=== PATIENT | male | born 1975 | race Caucasian/White ===

== ENCOUNTER 2024-05-31 16:39 | Emergency (ER) | payer SELFPAY ==
[2024-05-31 16:42] VITALS: BP 166/82; PULSE 76; RESP 18; TEMP 36.7; O2SAT 98; BMI 34.0
--- NOTE | 2024-05-31 16:56 | CTR_ITS ---
PROCEDURE INFORMATION: Exam: CT Head Without Contrast Exam date and time: 05/31/2024 5:08 PM Age: 48 years old Clinical indication: Stroke-like symptoms; Dizziness/giddiness; Additional info: Possible stroke TECHNIQUE: Imaging protocol: Computed tomography of the head without contrast. Total images: 319 Radiation optimization: All CT scans at this facility use at least one of these dose optimization techniques: automated exposure control; mA and/or kV adjustment per patient size (includes targeted exams where dose is matched to clinical indication); or iterative reconstruction. Other technique: STROKE PROTOCOL was implemented. COMPARISON: No relevant prior studies available. RADIATION DOSE METRICS: Total DLP (mGy-cm): 1145.98 FINDINGS: Brain: No midline shift. The ventricular system is open and the cerebral sulci are not effaced. Within the brain parenchyma, no focus of abnormal attenuation is identified. There is no acute intra-axial hemorrhage or mass effect identified. No extra-axial fluid collection demonstrated. Cerebral ventricles: No Hydrocephalus. Paranasal sinuses: Visualized paranasal sinuses are clear. Mastoid air cells: Visualized mastoid air cells are clear. Bones: No acute osseous abnormality identified. Soft tissues: No acute abnormality identified. Notes: Please note CT does not detect all acute ischemic abnormalities; if indicated, consider MRI with diffusion, or follow-up Head CT CT/CT head wo con* [id number] IMPRESSION: No evidence of acute intracranial hemorrhage or mass effect. ASSESSMENT: ASPECTS ([place] Stroke Program Early CT Score) is 10.
--- NOTE | 2024-05-31 17:30 | W.ED.NEUROSD ---
HPI - Neuro Symptoms/Deficit General: Chief Complaint: Neuro Symptoms/Deficit Stated Complaint: sent from clinic possible TIA Time Seen by Provider: 05/31/24 16:54 History of Present Illness: 48-year-old man with no known medical problems who presents emergency room with episodes of dizziness and feeling off balance and possibly some slurred speech overnight. Symptoms were intermittent overnight starting about 1:30 AM. They then resolved. He then had symptoms again today and went to a urgent care who sent him to the emergency room. He is completely 100% symptom-free at this time. No cough. No chest pain. No shortness of breath. No abdominal pain. No nausea or vomiting. Related Data Previous Rx's Medication Instructions Recorded lisinopril 20 mg tablet 20 mg PO DAILY #60 tabs 05/31/24 metformin 500 mg tablet 500 mg PO BID #60 tabs 05/31/24 Allergies Allergy/AdvReac Type Severity Reaction Status Date / Time Penicillins Allergy Unknown Verified 05/31/24 16:52 Review of Systems Narrative: Constitutional symptoms: Negative except as documented in HPI. Skin symptoms: Negative except as documented in HPI. Eye symptoms: Negative except as documented in HPI. ENMT symptoms: Negative except as documented in HPI. Respiratory symptoms: Negative except as documented in HPI. Cardiovascular symptoms: Negative except as documented in HPI. Gastrointestinal symptoms: Negative except as documented in HPI. Genitourinary symptoms: Negative except as documented in HPI. Musculoskeletal symptoms: Negative except as documented in HPI. Neurologic symptoms: Negative except as documented in HPI. Psychiatric symptoms: Negative except as documented in HPI. Endocrine symptoms: Negative except as documented in HPI. FORMERLY [facility], [facility] ED PFSH: Social History Smoking and tobacco/nicotine status: unknown if used tobacco/nicotine Physical Exam Narrative: EXAM NARRATIVE: General: Alert, no acute distress. Skin: Warm, dry. Head: Normocephalic, atraumatic. Neck: Supple, trachea midline. Eye: Extraocular movements are intact. Ears, nose, mouth and throat: mucosa moist. Cardiovascular: Regular, Normal peripheral perfusion. Respiratory: Lungs are clear to auscultation, respirations are non-labored, breath sounds are equal, Symmetrical chest wall expansion. Gastrointestinal: Soft, Nontender, Non distended Musculoskeletal: Normal ROM, no deformity. Neurological: Alert and oriented, No focal neurological deficit observed. Psychiatric: Cooperative, appropriate mood & affect. Course Vital Signs: Vital signs: Vital Signs Temperature 98.0 F 05/31/24 16:42 Pulse Rate 70 05/31/24 19:01 Respiratory Rate 20 H 05/31/24 19:01 Blood Pressure 166/82 05/31/24 16:42 Pulse Oximetry 97 05/31/24 19:01 Oxygen Delivery Me thod Room Air 05/31/24 16:42 MDM - Neuro Symptoms/Deficit Medical Decision Making Medical decision making: Differential diagnosis for patient with focal neurologic deficit(s) includes but not limited to and based on the above HPI, review of systems and physical exam: ischemic stroke, hemorrhagic stroke and embolic stroke secondary to atrial fibrillation), TIA, Brunson's palsey, metabolic encephalopathy with previous stroke. Orders placed to evaluate differential diagnosis based on the above differential, HPI and physical exam EKG: Time 1742. Rate 71. Normal sinus rhythm, No ST-T changes, no ectopy, normal IN & QRS intervals, This was reviewed and interpreted by myself the ER physician at 1745 CT head: No acute intracranial process. no intracranial hemorrhage, no evidence of infarct. no evidence of acute fracture.This was reviewed and interpreted by myself the ER physician. Lab Review: Laboratory results were reviewed and interpreted by myself the emergency room physician. Patient has a sugar of 300. He has noted increased thirst. An A1c was added which is 12.5. He definitely has type 2 diabetes. He does not have a primary care provider so I am putting him on metformin and lisinopril and he has explicit instructions to follow with a primary as soon as possible. Mean and creatinine are near normal. A.m. glucose was 274. I reviewed the patient's medical record. Reexamination: Patient remained stable. No increased work of breathing. No altered mental status. No focal motor deficits. I discussed at length the risks of diabetes and diet choices that would help. We also discussed that he needs primary care follow-up as soon as possible. He expresses understanding. Assessment and plan: New onset type 2 diabetes Near syncopal episodes/dizzy episodes Dehydration Hypertension Obesity ?Initiating metformin and lisinopril therapy at a low doses. This will need follow-up and the patient expresses understanding. I am giving him 1 refill at this point and he had his and his mother all say they will get him into see the eye doctor as soon as possible. - Discharged home - Discussed findings and plan with patient. Answered any questions. - All laboratory values were reviewed and interpreted personally by myself, the ER physician - All imaging was reviewed and interpreted personally by myself, the ER physician. - Evaluation and treatment of this problem were appropriate in the emergency setting Lab Data 05/31/24 18:48 05/31/24 17:[address] 05/31/24 16:56 IMPRESSION: No evidence of acute intracranial hemorrhage or mass effect. ASSESSMENT: ASPECTS ([place] Stroke Program Early CT Score) is 10. Laboratory Results WBC 7.00 10^3/uL (3.29-11.43) 05/31/24 18:48 Corrected WBC Cancelled 05/31/24 17:18 RBC 5.20 10^6/uL (3.85-5.65) 05/31/24 18:48 Hgb 15.30 g/dL (11.27-16.99) 05/31/24 18:48 Hct 44.2 % (37-53) 05/31/24 18:48 MCV 85.0 fl (82-101) 05/31/24 18:48 MCH 29.4 pg (27-33) 05/31/24 18:48 MCHC 34.6 g/dL (30-55) 05/31/24 18:48 RDW 12.1 % (12.1-15.1) 05/31/24 18:48 Plt Count 184 10^3/cmm (157-399) 05/31/24 18:48 MPV 10.1 fL (7.4-10.4) 05/31/24 18:48 Gran % Cancelled 05/31/24 17:18 Neut % (Auto) 53.3 % 05/31/24 18:48 Lymph % (Auto) 36.7 % 05/31/24 18:48 [place] % (Auto) 7.7 % 05/31/24 18:48 Eos % (Auto) 1.6 % 05/31/24 18:48 Baso % (Auto) 0.6 % 05/31/24 18:48 Neut # (Auto) 3.73 10^3/uL (1.8-7.7) 05/31/24 18:48 Lymph # (Auto) 2.6 10^3/uL (0.8-4.8) 05/31/24 18:48 [place] # (Auto) 0.5 10^3/uL (0.2-0.9) 05/31/24 18:48 Eos # (Auto) 0.1 10^3/uL (0.0-0.8) 05/31/24 18:48 Baso # (Auto) 0.0 10^3/uL (0.0-0.1) 05/31/24 18:48 Absolute Gran (auto) Cancelled 05/31/24 17:18 Nucleated RBC % (auto) 0 % 05/31/24 18:48 Nucleated RBCs # 0.0 /100WBC 05/31/24 18:48 PT 13.20 SECONDS (12.1-14.9) 05/31/24 17:18 INR 0.97 (0.8-1.2) 05/31/24 17:18 APTT 24.9 SECONDS (23.9-36.7) 05/31/24 17:18 Sodium 131 mmol/L (136-145) L 05/31/24 17:18 Potassium 3.9 mmol/L (3.5-5.1) 05/31/24 17:18 Chloride 95 mmol/L (98-107) L 05/31/24 17:18 Carbon Dioxide 22 mmol/L (22-29) 05/31/24 17:18 Anion Gap 17.9 (5-19) 05/31/24 17:18 BUN 14 mg/dL (6-20) 05/31/24 17:18 Creatinine 0.7 mg/dL (0.7-1.2) 05/31/24 17:18 GFR Calculation 119.9 mL/min (90-130) 05/31/24 17:18 Glucose 274 mg/dL (65-115) H 05/31/24 17:18 Estimat Average Glucose 306 05/31/24 18:48 Hemoglobin A1c 12.3 % (4.0-6.0) H 05/31/24 18:48 Calculated Osmolality 282 mOsm/kg (285-295) L 05/31/24 17:18 Calcium 9.0 mg/dL (8.5-10.5) 05/31/24 17:18 Total Bilirubin 0.5 mg/dL (0.15-1.2) 05/31/24 17:18 AST 15 U/L (0-40) 05/31/24 17:18 ALT 24 U/L (0-41) 05/31/24 17:18 Alkaline Phosphatase 58 U/L (40-130) 05/31/24 17:18 C-Reactive Protein 3.7 mg/L (0.0-4.9) 05/31/24 17:18 Total Protein 6.9 g/dL (6.6-8.7) 05/31/24 17:18 Albumin 4.0 g/dL (3.5-5.2) 05/31/24 17:18 Globulin 2.9 g/dL (1.3-4.6) 05/31/24 17:18 Urine Color Yellow (Yellow) 05/31/24 17:22 Urine Appearance Clear (CLEAR) 05/31/24 17:22 Urine pH 5.5 (5-7) 05/31/24 17:22 Ur Specific [place] 1.029 (1.005-1.030) 05/31/24 17:22 Urine Protein Negative (Negative) 05/31/24 17:22 Urine Glucose (UA) 3+ (Normal) H 05/31/24 17:22 Urine Ketones Negative (Negative) 05/31/24 17:22 Urine Blood Negative (Negative) 05/31/24 17:22 Urine Nitrate Negative (Negative) 05/31/24 17:22 Urine Bilirubin Negative (Negative) 05/31/24 17:22 Urine Urobilinogen 0.2 mg/dL (Negative) 05/31/24 17:22 Ur Leukocyte Esterase Negative (Negative) 05/31/24 17:22 Urine RBC Rare /hpf (0-2) 05/31/24 17:22 Urine WBC Rare /hpf (0-5) 05/31/24 17:22 Ur Squamous Epith Cells 0-4 /hpf (0-5) H 05/31/24 17:22 Amorphous Sediment Not Reportable 05/31/24 17:22 Urine Bacteria Trace /hpf (NONE) 05/31/24 17:22 All radiology interpretation(s) finalized by discharge Discharge Plan Discharge Patient Disposition: Home Clinical Impression: New onset type 2 diabetes mellitus, Dehydration, Episode of dizziness, Hypertension, Obesity Condition: Stable Prescriptions: New metformin 500 mg tablet 500 mg PO BID Qty: 60 1RF lisinopril 20 mg tablet 20 mg PO DAILY Qty: 60 1RF Discharge Orders: Discharge ED (Routine); Ordered 05/31/24 Ordered By: Emilia Alexander Discharge Diet: Diabetic Discharge Activity: Increase activity as tolerated Patient Instructions: Type 2 Diabetes in Adults: New Diagnosis (DC), Type 2 Diabetes Management for Adults (ED) Activity Restrictions/Additional Instructions: Please arrange for follow-up with a primary care as soon as possible. Please limit your carbohydrate intake and increase your free water intake. Carbohydrates include things like sodas, any sugar containing products, pasta, bread, doughnuts etc. Thank you for choosing [facility] for your healthcare needs today. Please realize this is an emergency room and that we are providing you with a medical screening exam and this may not be complete and all inclusive of all the testing and or work up that you may need to determine your ailment or severity of your illness. You have been screened and evaluated and felt safe for discharge. Health conditions do change or evolve sometimes and as such it is important that you follow up with your Primary Doctor to be re checked, 3-5 days is a general good time frame for follow up. You are always welcome to return to the ED for re assessment if your symptoms are worsening or you have new concerns Coding Level of Care Code ED Outpatient Clerk for Jodie Pimentel
--- NOTE | 2024-05-31 17:34 | ECG_ITS ---
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
[2024-05-31 17:43] LABS: INR 0.97 (0.8-1.2); Partial Thromboplastin Time 24.9 SECONDS (23.9-36.7)
[2024-05-31 17:46] LABS: Alanine Aminotransferase 24 U/L (0-41); Alkaline Phosphatase 58 U/L (40-130); Anion Gap 17.9 (5-19); Aspartate Amino Transferase 15 U/L (0-40); Blood Urea Nitrogen 14 mg/dL (6-20); C Reactive Protein 3.7 mg/L (0.0-4.9); Carbon Dioxide 22 mmol/L (22-29); Chloride 95 mmol/L (98-107); Creatinine Clr Calc Pharmacy 171.2086; Globulin 2.9 g/dL (1.3-4.6); Glomerular Filtration Rate 119.9 mL/min (90-130); Glucose 274 mg/dL (65-115); Osmolality Calculated 282 mOsm/kg (285-295); Potassium 3.9 mmol/L (3.5-5.1); Sodium 131 mmol/L (136-145); Total Bilirubin 0.5 mg/dL (0.15-1.2); Total Protein 6.9 g/dL (6.6-8.7)
[2024-05-31 17:54] LABS: Bilirubin Urine Negative (Negative); Blood Urine Negative (Negative); Glucose Urine UA 3+ (Normal); Ketones Urine Negative (Negative); Leukocyte Esterase Urine Negative (Negative); Nitrate Urine Negative (Negative); Protein Urine Negative (Negative); Specific Gravity, Urine 1.029 (1.005-1.030); Urine Appearance Clear (CLEAR); Urine Color Yellow (Yellow); Urobilinogen Urine 0.2 mg/dL (Negative); pH Urine 5.5 (5-7)
[2024-05-31 18:31] LABS: Bacteria Urine TRACE /hpf; RBC Urine RARE /hpf (0-2); Squamous Epithelial Cell Urine 0-4 /hpf (0-5); WBC Urine RARE /hpf (0-5)
[2024-05-31 18:54] LABS: Basophils % 0.6 %; Eosinophils # 0.1 10^3/uL (0.0-0.8); Eosinophils % 1.6 %; Hematocrit 44.2 % (37-53); Lymphocytes # 2.6 10^3/uL (0.8-4.8); Lymphocytes % 36.7 %; Mean Corpuscular HGB Conc 34.6 g/dL (30-55); Mean Corpuscular Hemoglobin 29.4 pg (27-33); Mean Platelet Volume 10.1 fL (7.4-10.4); Monocytes # 0.5 10^3/uL (0.2-0.9); Monocytes % 7.7 %; Neutrophils # 3.73 10^3/uL (1.8-7.7); Neutrophils % 53.3 %; Nucleated Red Blood Cells % 0 %; Platelet Count 184 10^3/cmm (157-399); Red Cell Distribution Width 12.1 % (12.1-15.1)
[2024-05-31 19:01] VITALS: PULSE 70; RESP 20; O2SAT 97
[2024-05-31 19:36] LABS: Estmated Average Glucose 306; Hemoglobin A1C 12.3 % (4.0-6.0)
[2024-05-31] MEDS: metformin 500 mg Tablet PO (19:58)
[2024-05-31] MEDS: lisinopril 10 mg Tablet PO (19:58)
== END 2024-05-31 20:00 | disposition home or self-care (01) ==
PROVIDERS: Emergency Provider Emergency Medicine
DX: E11.9 Type 2 diabetes mellitus without complications (principal); R42 Dizziness and giddiness; E86.0 Dehydration; I10 Essential (primary) hypertension; E66.9 Obesity, unspecified; Z68.34 Body mass index [BMI] 34.0-34.9, adult
CPT/HCPCS: 36415; 70450; 80053; 81001; 83036; 85025; 85610; 85730; 86140; 93005; 99284